=== PATIENT | female | born 1945 ===

== ENCOUNTER → 2016-09-27 | Outpatient (REF) | LOC: ZLAB.WCH 12:02 | DX: Z01.89 Encounter for other specified special examinations (principal) ==

== ENCOUNTER → 2016-12-27 | Outpatient (REF) | LOC: ZLAB.WCH 18:13 | DX: Z01.89 Encounter for other specified special examinations (principal) ==

== ENCOUNTER → 2017-07-17 | Outpatient (REF) | LOC: ZLAB.WCH 18:19 | DX: Z01.89 Encounter for other specified special examinations (principal) ==

== ENCOUNTER → 2017-10-22 | Outpatient (REF) | LOC: ZLAB.WCH 16:05 | DX: Z01.89 Encounter for other specified special examinations (principal) ==

== ENCOUNTER → 2018-01-21 | Outpatient (REF) | LOC: ZLAB.WCH 16:20 | DX: Z01.89 Encounter for other specified special examinations (principal) ==

== ENCOUNTER → 2018-04-23 | Outpatient (REF) | LOC: ZLAB.WCH 16:57 | DX: Z01.89 Encounter for other specified special examinations (principal) ==

== ENCOUNTER → 2018-07-16 | Outpatient (REF) | LOC: ZLAB.WCH 15:09 | DX: Z01.89 Encounter for other specified special examinations (principal) ==